=== PATIENT | female | born 2000 | race Caucasian/White ===

== ENCOUNTER 2019-12-01 06:27 | Emergency (ER) | payer MEDICAID ==
[2019-12-01] MEDS ORDERED: NORMAL SALINE 1000 ML 1,630 ML IV ONE (07:01)
[2019-12-01] MEDS ORDERED: AZTREONAM INJ 1 GM VIAL IV ONE (07:01)
[2019-12-01] MEDS ORDERED: VANCOMYCIN HCL INJ 1000 MG VIAL IV ONE (07:01)
[2019-12-01 09:51] LABS: APPEARANCE,URINE SLIGHTLY-CLOUDY; BILIRUBIN,URINE NEGATIVE (NEGATIVE); COLOR,URINE YELLOW; GLUCOSE, URINE NEGATIVE (NEGATIVE); KETONES,URINE NEGATIVE (NEGATIVE); PROTEIN,URINE NEGATIVE (NEGATIVE); URINE SPECIFIC GRAVITY 1.017; UROBILINOGEN,URINE NEGATIVE mg/dL (<2.0)
[2019-12-01 10:07] LABS: URINE BARBITURATES SCREEN NEGATIVE; URINE BENZODIAZEPINES SCREEN NEGATIVE; URINE MARIJUANA (THC) SCREEN NEGATIVE; URINE METHADONE SCREEN NEGATIVE; URINE PHENCYCLIDINE SCREEN NEGATIVE
[2019-12-01 10:08] LABS: URINE COCAINE SCREEN UNCONFIRMED POSITIVE
--- NOTE | 2019-12-01 11:51 | RADIOLOGY REPORT (SQ) ---
EXAM DESCRIPTION: PICC INSERTION IMAGES COMPLETED DATE/TIME: 12/01/2019 11:09 am REASON FOR STUDY: unable to gain access/hx ivda COMPARISON: None. FLUOROSCOPY TIME: 6 seconds 2 images saved to PACS. TECHNIQUE: Fluoroscopic and ultrasound guided PICC placement. LIMITATIONS: None. PROCEDURE: After written consent and assessment were obtained, the patient was brought into the fluo roscopy room and placed supine on the table. Ultrasound evaluation of potential access sites were per formed. After successfully identifying a patent left basilic vein, the left arm was prepped and drape d in a sterile fashion along with the ultrasound probe. The entry site was anesthetized with 1% lidoc clovis. A 21 gauge 7 cm needle was advanced through the skin and into the basilic vein under live ultra sound guidance. An ultrasound image was saved to PACS confirming access site. A .018 guide wire was then inserted through the needle and into the venous system. The needle was then removed and an 11 b lade scalpel was used to make a 1cm skin incision. A 5 fr peel-away sheath was advanced over the wir e and into the venous system. A measurement was then made using the existing wire and live fluoroscop ic guidance. The wire was then removed and trimmed. The PICC was advanced through the peel-away sheat h and into the venous system. The peel-away sheath was removed and the catheter was adhered to the pa tients arm with a stat lock. The catheter was then aspirated and flushed and a sterile bandage was pl aced over the access site. A fluoroscopic spot image was saved to PACS confirming the catheter tip w ithin the superior vena cava. IMPRESSION: SUCCESSFUL PLACEMENT OF A 5 FR DUAL LUMEN 38 CM PICC IN THE LEFT BASILIC VEIN. COMMENT: Patient medication list reviewed: Yes- Quality ID# 130:Eligible professional attests to doc umenting in the medical record they obtained, updated, or reviewed the patient's current medications. . Quality ID 145: Final reports for procedures using fluoroscopy that document radiation exposure neisha catherine, or exposure time and number of fluorographic images (if radiation exposure indices are not avail able) Quality ID #76: The patient was prepped and draped using maximum sterile barrier technique including cap, mask, sterile gown, sterile gloves, a large sterile sheet, hand hygiene, and 2% Chlorhexidine fo r cutaneous antisepsis. When ultrasound is used, sterile ultrasound techniques are followed requiring sterile gel and sterile probes. TECHNICAL DOCUMENTATION: JOB ID: [id number] 2010 [employer]- All Rights Reserved rev-12/19 Reading location - IP/workstation name: [email or web address]
[2019-12-01 12:00] LABS: VENOUS BLOOD BASE EXCESS 1.6 mmol/L; VENOUS BLOOD HCO3 28.3 mmol/L (20-32); VENOUS BLOOD PH 7.34 (7.30-7.42)
[2019-12-01 12:07] LABS: ABSOLUTE EOSINOPHILS # (AUTO) 0.1 10^3/uL (0.0-0.6); ABSOLUTE LYMPHOCYTES (AUTO) 2.5 10^3/uL (0.5-4.7); ABSOLUTE MONOCYTES (AUTO) 0.7 10^3/uL (0.1-1.4); ABSOLUTE NEUT (AUTO) 6.9 10^3/uL (1.7-8.2); BASOPHILS % (AUTO) 0.2 % (0-2); EOSINOPHILS % (AUTO) 0.6 % (0-6); HEMATOCRIT 27.3 % (36.0-47.0); HEMOGLOBIN 9.6 g/dL (12.0-15.5); LYMPHOCYTES % (AUTO) 24.3 % (13-45); MEAN CORPUSCULAR HGB CONC 35.2 g/dL (32.0-36.0); MEAN CORPUSCULAR VOLUME 91 fl (80-97); MONOCYTES % (AUTO) 7.1 % (3-13); PLATELET COUNT 665 10^3/uL (150-450); RED BLOOD COUNT 3.01 10^6/uL (3.72-5.28); RED CELL DISTRIBUTION WIDTH 12.6 % (11.5-14.0); SEGMENTED NEUTROPHILS % (AUTO) 67.8 % (42-78); TOTAL CELLS COUNTED % (AUTO) 100 %; WHITE BLOOD COUNT 10.2 10^3/uL (4.0-10.5)
[2019-12-01 12:09] LABS: INTERNATIONAL RATION (INR) 1.04; PROTHROMBIN TIME 13.6 SEC (11.4-15.4)
--- NOTE | 2019-12-01 12:17 | ER Document Report ---
ED General - General Chief Complaint: Wound Infection Stated Complaint: LEG WOUND Time Seen by Provider: 12/01/19 06:47 Mode of Arrival: Ambulatory Information source: Patient - HPI Notes: Patient comes in complaining of bilateral leg pain. The left is greater than the right. She states she recently had an abscess that was operated on at an outside facility approximately 4 days ago. She states that she left that hospital she has had persistent pain in both legs worse on the left. It does radiate up the left leg. It is worse with movement and better with rest. Has constant moderate and throbbing. She denies any fevers. She also states she has developed a new rash that is diffuse but mainly on the legs. She states she does have a history of IV drug use and did last use yesterday when she used methamphetamines and heroin. - Related Data Allergies/Adverse Reactions: Penicillins Allergy (Verified 12/01/19 06:38) Past Medical History - General Information source: Patient - Social History Smoking Status: Current Every Day Smoker Frequency of alcohol use: Occasional Drug Abuse: Heroin, Methamphetamine Family History: Reviewed & Not Pertinent Patient has suicidal ideation: No Patient has homicidal ideation: No Review of Systems - Review of Systems Constitutional: Malaise, Weakness Cardiovascular: denies: Chest pain, Palpitations Respiratory: denies: Cough, Short of breath -: Yes All other systems reviewed and negative Physical Exam - Vital signs Vitals: Temp Pulse Resp BP Pulse Ox 97.7 F 111 H 18 162/76 H 98 12/01/19 06:46 12/01/19 06:46 12/01/19 06:46 12/01/19 06:46 12/01/19 06:46 Interpretation: Tachycardic - General General appearance: Alert In distress: None - HEENT Head: Normocephalic, Atraumatic Eyes: Normal Pupils: PERRL - Respiratory Respiratory status: No respiratory distress Chest status: Nontender Breath sounds: Normal Chest palpation: Normal - Cardiovascular Rhythm: Tachycardia Heart sounds: Normal auscultation Murmur: No - Abdominal Inspection: Normal Distension: No distension Bowel sounds: Normal Tenderness: Nontender Organomegaly: No organomegaly - Back Back: Normal, Nontender - Extremities General upper extremity: Normal inspection, Nontender, Normal color, Normal ROM, Normal temperature General lower extremity: Other - Both lower extremities have diffuse rash consistent with vasculitis. The left foot is inflamed erythematous and tender. There is some packing in place. I did remove the packing which reveals a deep ulceration consistent with a recently drained abscess.. No: Silverio's sign - Neurological Neuro grossly intact: Yes Cognition: Normal Orientation: AAOx4 [place] Coma Scale Eye Opening: Spontaneous [place] Coma Scale Verbal: Oriented Jose Coma Scale Motor: Obeys Commands [place] Coma Scale Total: 15 Speech: Normal Motor strength normal: LUE, RUE, LLE, RLE Sensory: Normal - Psychological Associated symptoms: Agitated, Flat affect - Skin Skin Temperature: Warm Skin Moisture: Dry Skin Color: Other - Patient has a diffuse erythematous nonblanching rash on the bilateral lower extremities consistent with vasculitis Course - Vital Signs Vital signs: Temp Pulse Resp BP Pulse Ox 97.9 F 111 H 13 130/63 H 97 12/01/19 11:27 12/01/19 06:46 12/01/19 12:01 12/01/19 12:00 12/01/19 12:01 - Laboratory Result Diagrams: 12/01/19 11:30 12/01/19 11:30 Laboratory results interpreted by me: 12/01/19 12/01/19 12/01/19 09:23 11:30 11:30 RBC 3.01 L Hgb 9.6 L Hct 27.3 L Plt Count 665 H Sodium 131.8 L Creatinine 0.41 L Lactic Acid AST 82 H ALT 109 H Albumin 2.7 L Leukocyte Esterase Rfl TRACE H 12/01/19 11:30 RBC Hgb Hct Plt Count Sodium Creatinine Lactic Acid < 0.5 L AST ALT Albumin Leukocyte Esterase Rfl - Diagnostic Test Radiology reviewed: Image reviewed, Reports reviewed - EKG Interpretation by In EKG shows normal: Sinus rhythm Rate: Normal - 81 Rhythm: NSR [facility]/QRS: No: Right axis deviation, Left axis deviation Discharge - Discharge Clinical Impression: Cellulitis of left lower extremity, Cellulitis of left foot, Heroin abuse, Methamphetamine abuse, Vasculitis Condition: Serious Disposition: ADMITTED INPATIENT Admitting Provider: Marcelo (Hospitalist) - Don Day to admit Unit Admitted: Medical Floor
[2019-12-01 12:25] LABS: ALBUMIN 2.7 g/dL (3.5-5.0); ALKALINE PHOSPHATASE 100 U/L (38-126); ASPARTATE AMINO TRANSFERASE 82 U/L (14-36); BILIRUBIN,TOTAL 0.4 mg/dL (0.2-1.3); BLOOD UREA NITROGEN 10 mg/dL (7-20); CALCIUM 8.6 mg/dL (8.4-10.2); CHLORIDE 99 mmol/L (98-107); GLUCOSE 92 mg/dL (75-110); POTASSIUM 4.5 mmol/L (3.6-5.0); TOTAL PROTEIN 6.9 g/dL (6.3-8.2)
[2019-12-01 12:31] LABS: ANION GAP 5 (5-19); CARBON DIOXIDE 28 mmol/L (22-30)
[2019-12-01] MEDS ORDERED: VANCOMYCIN HCL INJ 1000 MG VIAL ONE (12:31)
--- NOTE | 2019-12-01 13:42 | RADIOLOGY REPORT (SQ) ---
EXAM DESCRIPTION: CT LT LOWER EXTREMITY WITHOUT IMAGES COMPLETED DATE/TIME: 12/01/2019 1:31 pm REASON FOR STUDY: foot/leg wound-eval abscess COMPARISON: None. TECHNIQUE: Axial imaging performed through the Left foot with reformatted coronal and sagittal imaging windowed for bone and soft tissues. Images saved to PAC S. 3D IMAGING: Were 3D images as MIP, SSD, or volume rendering performed at the work station? No LIMITATIONS: None. FINDINGS: SOFT TISSUES: Cellulitis especially dorsal aspect of the forefoot. Subcutaneous gas bubbl es. Adjacent skin defect. No foreign body. BONY STRUCTURES: No cortical breakthrough. MINERALIZATION: Normal. OTHER: No other significant finding. IMPRESSION: Necrotizing cellulitis. No evidence of abscess or osteomyelitis. Reading location - IP/workstation name: [email or web address]
[2019-12-01] MEDS ORDERED: KETOROLAC TROMETHAMINE INJ/PF 30 MG/1 ML SDV IV ONE (13:47)
--- NOTE | 2019-12-01 14:40 | PDOC CONSULTATION ---
Consultation Consult Date: 12/01/19 Attending physician:: KIKI GANDHI Provider Consulted: NELSON ADAMSON JR Consult reason:: necrotizing cellulitis, vasculitis, iv drug use History of Present Illness Admission Date/PCP: 12/01/2019 History of Present Illness: DARELL HERNANDEZ is a 19 year old female who presents to the emergency room with a wound/abscess to the left foot. Patient is a poor historian and also does not tell me the entire truth during the history, after a phone call to [facility] I have put this scenario together. Approximately 10 days ago patient states that she thinks she was bitten on the top of the left foot by a spider. Patient did not see a spider but said that she was sunbathing in the garage, there are lots of spiders there. Several days after that she said she went to the emergency room at [facility] where she was admitted for "a couple of days". As it turns out she was there on the and she left AMA on the after an I&D procedure on the dorsum of the left foot. Possibly over pain medication.. Patient tells me that about 2 or 3 days ago she noticed that she was starting to develop a rash over her entire body and more pain in her left foot. I have called [facility] and spoken to the ER physician, Dr. Sandhu, it was very helpful piecing this information together. Dr. Noonan also tells me that the patient either wound or blood culture grew out MRSA. Patient has received 1 dose of IV vancomycin here in the ER. Was consulted to see the patient for possible admission here for her cellulitis. Here in our facility patient has had a CT scan of the left foot which shows necrotizing cellulitis evidenced by subcutaneous gas bubbles. No evidence of foreign body or osteomyelitis or abscess. WBCs 10.2 platelets 665,000. INR 1.04 Sodium 131 potassium 4.5 BUN of 10, creatinine 0.41. Lactic acid less than 0.5 And drug screen is unconfirmed positive for opiates and unconfirmed positive for cocaine. She admits to doing amphetamines and heroin yesterday. She states that when she shoots up heroin she usually does it on the dorsum of the hands and is never done it in the feet. Due to the complexity of this case and the fact that we do not have infectious disease here at the hospital I think it is appropriate to transfer the patient to [facility], a higher level of care. Dr. Noonan has graciously accepted the patient and will go ED to ED. Jessica. at the transfer center [phone] will help facilitate the transfer. Patient is medically stable for transfer. Past Medical History Medical History: None Past Surgical History Past Surgical History: Reports: Other - I and D foot Social History Smoking Status: Current Every Day Smoker - Advance Directive Resuscitation Status: Full Code Family History Family History: Reviewed & Not Pertinent Parental Family History Reviewed: No Children Family History Reviewed: No Sibling(s) Family History Reviewed.: No Medication/Allergy Home Medications: No Home Medications 12/01/19 Allergies/Adverse Reactions: Penicillins Allergy (Verified 12/01/19 06:38) Review of Systems Constitutional: PRESENT: weakness Cardiovascular: ABSENT: chest pain, dyspnea on exertion, edema, orthropnea, palpitations Respiratory: ABSENT: cough, hemoptysis Neurological: ABSENT: abnormal gait, abnormal speech, confusion, dizziness, focal weakness, syncope Psychiatric: ABSENT: anxiety, depression, homidical ideation, suicidal ideation Physical Exam Vital Signs: Temp Pulse Resp BP Pulse Ox 97.9 F 111 H 13 130/63 H 97 12/01/19 11:27 12/01/19 06:46 12/01/19 12:01 12/01/19 12:00 12/01/19 12:01 Intake & Output 11/30/19 12/01/19 12/02/19 06:59 06:59 06:59 Weight 54.431 kg General appearance: PRESENT: no acute distress, other - She is complaining because she is hungry and wants to be fed. Also was asking for something for pain Respiratory exam: PRESENT: clear to auscultation jayy. ABSENT: rales, rhonchi, wheezes Cardiovascular exam: PRESENT: RRR. ABSENT: diastolic murmur, rubs, systolic murmur Neurological exam: PRESENT: alert, awake, oriented to person, oriented to place, oriented to time, oriented to situation, CN II-XII grossly intact. ABSENT: motor sensory deficit Psychiatric exam: PRESENT: anxious Skin exam: PRESENT: erythema, rash, vesicles, other - Patient has what appears to be a disseminated vasculitis about both lower extremities all the way up to the trunk. Then she has it again in both arms Patient also has a wound to the dorsum of the left foot approximately 3 cm in length by 1 cm wide that is draining serous sanguinous fluid. Since left foot is also very erythematous, has 1-2+ edema Patient complains of severe tenderness and pain with even a sheet touching both legs Results Laboratory Results: 12/01/19 11:30 12/01/19 11:30 12/01/19 12/01/19 12/01/19 09:23 11:30 11:30 WBC 10.2 RBC 3.01 L Hgb 9.6 L Hct 27.3 L MCV 91 MCH 32.0 MCHC 35.2 RDW 12.6 Plt Count 665 H Seg Neutrophils % 67.8 VBG pH VBG pCO2 VBG HCO3 VBG Base Excess Sodium 131.8 L Potassium 4.5 Chloride 99 Carbon Dioxide 28 Anion Gap 5 BUN 10 Creatinine 0.41 L Est GFR ( Amer) > 60 Glucose 92 Lactic Acid Calcium 8.6 Total Bilirubin 0.4 AST 82 H Alkaline Phosphatase 100 Total Protein 6.9 Albumin 2.7 L Urine Color YELLOW Urine Appearance SLIGHTLY-CLOUDY Urine pH 5.0 Ur Specific [place] 1.017 Urine Protein NEGATIVE Urine Glucose (UA) NEGATIVE Urine Ketones NEGATIVE Urine Blood NEGATIVE Urine RBC (Auto) 3 12/01/19 12/01/19 11:30 11:30 WBC RBC Hgb Hct MCV MCH MCHC RDW Plt Count Seg Neutrophils % VBG pH 7.34 VBG pCO2 54.0 VBG HCO3 28.3 VBG Base Excess 1.6 Sodium Potassium Chloride Carbon Dioxide Anion Gap BUN Creatinine Est GFR ( Amer) Glucose Lactic Acid < 0.5 L Calcium Total Bilirubin AST Alkaline Phosphatase Total Protein Albumin Urine Color Urine Appearance Urine pH Ur Specific [place] Urine Protein Urine Glucose (UA) Urine Ketones Urine Blood Urine RBC (Auto) Impressions: PICC Line Insertion 12/01/19 08:41 IMPRESSION: SUCCESSFUL PLACEMENT OF A 5 FR DUAL LUMEN 38 CM PICC IN THE LEFT BASILIC VEIN. Lower Extremity CT 12/01/19 12:47 IMPRESSION: Necrotizing cellulitis. No evidence of abscess or osteomyelitis. Assessment and Plan - Diagnosis (1) Necrotizing cellulitis Is this a current diagnosis for this admission?: Yes (2) Heroin abuse Is this a current diagnosis for this admission?: Yes (3) Methamphetamine abuse Is this a current diagnosis for this admission?: Yes (4) Vasculitis Is this a current diagnosis for this admission?: Yes - Plan Summary Summary: Patient is medically stable for transfer back to [facility]. I have spoken to the ED physician and she will go ED to ED. patient will benefit from infectious disease specialist. I have confronted the patient that she did not tell me she left AMA she told me that she was discharged from the hospital. Patient received 1 dose of Toradol 30 mg IV here in the ED are by my order and a dose of vancomycin IV by the ED physician - Time Time Spent with patient: 35 or more minutes
[2019-12-01] MEDS ORDERED: KETOROLAC TROMETHAMINE INJ/PF 30 MG/1 ML SDV ONE (15:52)
[2019-12-01 16:13] VITALS: BP 157/93
--- NOTE | 2019-12-01 22:05 | EKG REPORT ---
SEVERITY:- NORMAL ECG - SINUS RHYTHM : Confirmed by: Megan Owen MD 01-Dec-2019 22:04:51
== END 2019-12-01 16:35 | disposition other institution (70) ==
LOC: ER 06:27
DX: L03.116 Cellulitis of left lower limb (principal); F11.10 Opioid abuse, uncomplicated; F15.10 Other stimulant abuse, uncomplicated; I77.6 Arteritis, unspecified; R53.1 Weakness; M79.605 Pain in left leg; M79.604 Pain in right leg; R21 Rash and other nonspecific skin eruption; F17.200 Nicotine dependence, unspecified, uncomplicated; Z88.0 Allergy status to penicillin
CPT/HCPCS: 93005; 99285; 96361; 96375; 96365; 96367; 36415; 87040; 83605; 85025; 85610; 81025; 80053; 81001; 80307; 82803; 36573; 73700; 93010; J1885; J7030; J3370; J3490; J1642